=== PATIENT | male | born 1965 | race Caucasian/White ===

== ENCOUNTER 2020-10-07 16:07 | Emergency (ER) | payer BC ==
[2020-10-07 16:25] VITALS: PULSE 97; TEMP 99; BMI 34.7
[2020-10-07 18:00] LABS: BASO % 0.2 % (0-2.0); EOS % 0.1 % (0-4.5); HEMATOCRIT 39.8 % (35.4-49); HEMOGLOBIN 13.8 GM/dL (11.7-16.9); LYMPH % 15.9 % (8-40); MCH 29.3 pg (25.7-33.7); MCHC 34.6 g/dl (32.0-35.9); MEAN CELL VOLUME 84.9 fl (80-96); MONO % 10.7 % (3.8-10.2); NEUT % 73.1 % (42.8-82.8); PLATELET COUNT 188 10^3/uL (134-434); RBC 4.69 M/mm3 (4.00-5.60); RDW 12.7 % (11.9-15.9); WHITE BLOOD COUNT 5.8 K/mm3 (4.0-10.0)
[2020-10-07 18:16] LABS: CALCIUM 8.5 mg/dL (8.5-10.1)
[2020-10-07 18:27] VITALS: BP 128/86
== END 2020-10-07 18:38 | disposition home or self-care (01) ==
LOC: JER 16:07
DX: U07.1 COVID-19 (principal)
CPT/HCPCS: 36415; 71046-TC-FY; 80048; 85025; 99284-25